=== PATIENT | male | born 1970 | race Caucasian/White ===

== ENCOUNTER 2021-06-26 12:47 | Emergency (ER) | payer BC ==
[~2021-06-26] VITALS: Ht 165.1 cm; Wt 97.5 kg
[2021-06-26 13:56] VITALS: BP_SYST 162
--- NOTE | 2021-06-26 19:00 | NUR ---
Patient to ER bed [facility] to [facility] for evaluation. Side rails up. Report given to TATYANA BLAS .
--- NOTE | 2021-06-26 19:05 | NUR ---
PATIENT AAOX4 AND AMBULATORY FROM HOME C/O LEFT HEEL PAIN. HISTORY OF HIP AND CARPAL SX, HLD, CURRENTLY STATING 8/10 ON THE PAIN SCALE.
--- NOTE | 2021-06-26 20:00 | NUR ---
DR. GOOD AT BEDSIDE FOR EVALUATION.
[2021-06-26 20:40] VITALS: BP_SYST 162
--- NOTE | 2021-06-26 20:40 | NUR ---
Patient given written and verbal discharge instructions and verbalizes understanding. DR. FLORENTINO ZAMUDIO MD discussed with patient the results and treatment provided. Patient in stable condition. ID arm band removed. Patient educated on pain management and to follow up with PMD. Pain Scale 0/10. Opportunity for questions provided and answered. Medication side effect fact sheet provided.
== END 2021-06-26 20:40 | disposition home or self-care (01) ==
LOC: SED 12:47
DX: S86.012A Strain of left Achilles tendon, initial encounter (principal); X50.9XXA Other and unspecified overexertion or strenuous movements or postures, initial encounter; Y93.89 Activity, other specified; Y92.89 Other specified places as the place of occurrence of the external cause; Y99.8 Other external cause status
CPT/HCPCS: 99283